=== PATIENT | female | born 1960 | race Caucasian/White ===

== ENCOUNTER 2021-09-15 10:13 | Observation (INO) | payer BC ==
[2021-09-12 15:40] LABS: PRE OP PROTIME 10.1 SECONDS (9.0-12.0)
[2021-09-12 15:51] LABS: ALBUMIN 4.1 G/DL (3.4-5.0); ALBUMIN/GLOBULIN RATIO 1.4 (1.1-1.5); ALKALINE PHOSPHATASE 37 IU/L (46-116); BLOOD UREA NITROGEN 22 MG/DL (7-18); BUN/CREATININE RATIO 24.4 (6.6-38.0); CALCIUM 8.5 MG/DL (8.5-10.1); CHLORIDE 104 MMOL/L (99-107); PRE OP ALT 24 U/L (30-65); PRE OP ANION GAP 9 (8-16); PRE OP AST 18 U/L (10-37); PRE OP BILIRUB, TOTAL 0.5 MG/DL (0.0-1.0); PRE OP GLUCOSE 103 MG/DL (70-104); PRE OP POTASSIUM 3.8 MMOL/L (3.4-5.1); PRE OP SODIUM 140 MMOL/L (135-145); TOTAL CARBON DIOXIDE 27.2 MMOL/L (24-32); TOTAL PROTEIN 7.1 G/DL (6.4-8.2); eGFR 63 ML/MIN
[2021-09-12 16:05] LABS: BASOPHILS % (AUTO) 0.6 % (0-1); EOSINOPHILS # (AUTO) 0.2 X10'3 (0-0.9); EOSINOPHILS % (AUTO) 2.2 % (0-6); LYMPHOCYTES # (AUTO) 1.5 X10'3 (1.1-4.8); LYMPHOCYTES % (AUTO) 19.8 % (21-51); MEAN CORPUSCULAR HEMOGLOBIN 31.7 PG (27.0-31.0); MEAN CORPUSCULAR HGB CONC 33.9 g/dL (33.0-36.5); MEAN CORPUSCULAR VOLUME 93.5 FL (78-98); MEAN PLATELET VOLUME 9.4 FL (7.4-10.4); MONOCYTES # (AUTO) 0.4 X10'3 (0-0.9); MONOCYTES % (AUTO) 4.7 % (2-12); NEUTROPHILS # (AUTO) 5.5 X10'3 (1.8-7.7); NEUTROPHILS % (AUTO) 72.7 % (42-75); PRE OP HEMATOCRIT 41.1 % (35.0-45.0); PRE OP HEMOGLOBIN 13.9 g/dL (12.0-16.0); PRE OP PLATELET COUNT 166 X10'3 (140-440); RED BLOOD COUNT 4.39 X10'6 (4.20-5.60); RED CELL DISTRIBUTION WIDTH 13.4 % (11.5-14.5)
[~2021-09-15] VITALS: Ht 170.2 cm; Wt 68.5 kg
[2021-09-15] VITALS (19 sets, daily range): BP systolic 113–147; BP diastolic 62–136
[~2021-09-15 10:13] MED LIST: ACET-1008 PO; HRT; ROPIVAcaine 0.5% (5mg/ml) 30ml vial ONE; THYR90TA12 PO; ceFAZolin inj. 2,000 MG in dextrose 5%-water 100 ML IV ONE; famotidine 20mg tablet PO ONE; ketorolac trometh. 30mg/ml inj. ONE; ringers solution, lacted 1,000 ML IV SCH; tranexamic acid 650mg tablet PO ONE; vancomycin/NS 1 GM in NS 250 ML IV ONE
--- NOTE | 2021-09-15 10:20 | NUR ---
CSM: PULSES PRESENT AND MARKED. PATIENT STATES SHE DID NOT WATCH THE VIDEO, BUT SHE DID USE THE MUPIROCIN OINTMENT. PATIENT WAS EDUCATED ON THE USE OF THE INCENTIVE SPIROMETER AND ITS IMPORTANCE.
[2021-09-15] MEDS ORDERED: scopolamine 1mg/72 hr patch TD SCH (10:55)
[2021-09-15] MEDS ORDERED: ROPIVAcaine 0.5% (5mg/ml) 30ml vial ONE ×2 (11:06→11:29)
[2021-09-15] MEDS ORDERED: tetracaine 1% (10mg/ml) pres. free inj. ONE (11:29)
[2021-09-15] MEDS ORDERED: propofol inj 20 ML IV ONE ×3 (11:31→13:33)
[2021-09-15] MEDS ORDERED: MIDAZolam 1mg/ml 10ml vial ONE ×2 (13:03→13:37)
[2021-09-15] MEDS ORDERED: LIDOcaine 1%/PF 5ML 10 MG/ML VIAL ONE (13:31)
[2021-09-15] MEDS ORDERED: ondansetron/PF 4mg/2ml inj ONE (13:34)
[2021-09-15] MEDS ORDERED: morphine 4 MG/ML inj SYRINge IV PRN (13:45)
[2021-09-15] MEDS ORDERED: labetalol 20mg/4ml (5mg/ml) syringe IV PRN (13:45)
[2021-09-15] MEDS ORDERED: ringers solution, lacted 1,000 ML IV SCH (13:45)
[2021-09-15] MEDS ORDERED: morphine 2 MG/ML inj. syringe IV PRN (13:45)
[2021-09-15] MEDS ORDERED: hydrALAZINE 20mg/ml inj. IV PRN (13:45)
[2021-09-15] MEDS ORDERED: meperidine/PF 25mg/ml syringe IV PRN ×2 (13:45)
[2021-09-15] MEDS ORDERED: ondansetron/PF 4mg/2ml inj IV PRN (13:45)
[2021-09-15] MEDS ORDERED: dexamethasone sod phosphate 4mg/ml inj. ONE (13:58)
[2021-09-15] MEDS ORDERED: HYDROcodone/acetaminophen 10/325mg tab PO PRN (14:20)
--- NOTE | 2021-09-15 14:41 | NUR ---
Received from OR via bed , accompanied by Anesthesiologist and report given by Anesthesiolgist (Dr. Ferris). Patient waking up, denies pain, VSS, neurovascular checks intact, scd on, 20g piv to left hand, dressing to left knee is clean, dry and intact, ordaz cath drain via gravity and yellow urine noted. SAB given in OR with dermatome level of L3. patient felt numbness and no movement on LLE. Addendum: 09/15/21 at 1508 by Vitor Adams RN Amended: Links added.
[2021-09-15] MEDS ORDERED: ROPIVAcaine 0.5% (5mg/ml) 30ml vial IJ ONE (14:58)
--- NOTE | 2021-09-15 15:55 | NUR ---
PATIENT HAS MET ALL CRITERIA FOR TRANSFER TO ORTHO FLOOR. VSS. DRESSINGS INTACT. BED LOW, CALL LIGHT PRESENT AND 2 RAILS UP. RN PRESENT TO ACCEPT CARE OF PATIENT AND REPORT HAS BEEN CALLED. ALL QUESTIONS ANSWERED TO ACCEPTING RN. Addendum: 09/15/21 at 1607 by Vitor Adams RN Amended: Links added.
--- NOTE | 2021-09-15 16:33 | NUR ---
Spoke to MD Paiz about this patient, he was not aware that she was staying nor that her block was not worn off. He would like patient to be discharged home if and when the block does wear off and she is able to transfer safely. Orders received via telephone for discharge and that he would like patient to have 2 grams of ancef before she goes IF she goes and IF not he wants standard 1 gram ancef x2 bags and 1 gram of vanco per protocol for surgical prophylaxis. Patient would really like to go home, not feeling anything beyond hip at this point, not able to wiggle though endorses pins and needles. Patient also has a ordaz catheter, advised that we would remove this prior to DC to ensure she can void. 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
[2021-09-15] MEDS ORDERED: ceFAZolin/D5W- 1GM premix 50 ML IV SCH (18:00)
--- NOTE | 2021-09-15 18:14 | NUR ---
Patient report was given RADAMES Miles.
[2021-09-15] MEDS ORDERED: vancomycin/NS 1 GM ADD-VANTAGE 250 ML IV ONE (20:00)
[2021-09-15] MEDS ORDERED: diphenhydrAMINE 25mg capsule PO PRN ×2 (21:10)
[2021-09-15] MEDS: ceFAZolin/D5W- 1GM premix 50 ML IV SCH (23:37)
[2021-09-16 02:00] VITALS: BP 125/66
[2021-09-16 06:00] VITALS: BP 112/54
--- NOTE | 2021-09-16 06:37 | NUR ---
Patient report was received by RADAMES HERNANDEZ. Questions answered & plan of care reviewed.
[2021-09-16] MEDS: ceFAZolin/D5W- 1GM premix 50 ML IV SCH (07:37)
--- NOTE | 2021-09-16 08:43 | NUR ---
PT D/C WITH INSTRUCTIONS, UNDERSTANDING OF INSTRUCTIONS AND W/ALL BELONGINGS IN WHEELCHAIR ACCOMPANIED BY TO PRIVATE VEHICLE TO F/U W/SURGEON
[2021-09-16] MEDS ORDERED: cefazolin/dext.iso 2gm/100ml 100 ML IV ONE (17:30)
== END 2021-09-16 08:30 | disposition home or self-care (01) ==
LOC: PAS 10:13 → ORTHO 4S 14:27
PROVIDERS: ADMIT Orthopaedic Surgery; ATTEND Orthopaedic Surgery
DX: M23.52 Chronic instability of knee, left knee (principal); Z20.822 Contact with and (suspected) exposure to COVID-19; M65.9 Synovitis and tenosynovitis, unspecified; Z96.652 Presence of left artificial knee joint; Z85.828 Personal history of other malignant neoplasm of skin; Z79.899 Other long term (current) drug therapy
CPT/HCPCS: 27486; 36415; 80053; 82948; 84443; 85025; 85610; 85730; 87070; 87081; 93005; 96365; 96366; 96367; 97116; 97161; 97530; C1758; C1776; G0378; J0690; J1100; J1885; J2250; J2405; J2704; J2795; J3370; J3490; J7030; J7060; J7120; A4618; A6258; A7000

== ENCOUNTER 2021-10-09 16:29 | Outpatient (CLI) | payer BC ==
[~2021-10-09 16:29] MED LIST changes: -ROPIVAcaine 0.5% (5mg/ml) 30ml vial ONE; -ceFAZolin inj. 2,000 MG in dextrose 5%-water 100 ML IV ONE; -famotidine 20mg tablet PO ONE; -ketorolac trometh. 30mg/ml inj. ONE; -ringers solution, lacted 1,000 ML IV SCH; -tranexamic acid 650mg tablet PO ONE; -vancomycin/NS 1 GM in NS 250 ML IV ONE
[2021-10-09 18:45] LABS: APPEARANCE,SYNOVIAL FLUID CLOUDY; COLOR,SYNOVIAL FLUID OTHER; LYMPHOCYTES,SYNOVIAL FLUID 29 % (0-75); MONOCYTES,SYNOVIAL FLUID 4 % (0-0); SYN RBC 6150 /CU MM (0); SYN WBC 1025 /CU MM (0-200)
[2021-10-09 18:46] LABS: NEUTROPHILS,SYNOVIAL FLUID 67 % (0-25)
[2021-10-10] MEDS ORDERED: TEST200V33 SQ (18:00)
[2021-10-10] MEDS ORDERED: CHOL500050 PO (18:21)
[2021-10-10] MEDS ORDERED: HYDR-3972 PO (18:21)
[2021-10-10] MEDS ORDERED: TURM500T PO (18:23)
== END 2021-10-09 23:59 | disposition home or self-care (01) ==
LOC: LAB SPEC 16:29
PROVIDERS: ATTEND Orthopaedic Surgery
DX: M17.12 Unilateral primary osteoarthritis, left knee (principal)
CPT/HCPCS: 87070; 87075; 89051

== ENCOUNTER 2021-10-10 16:38 | Inpatient (IN) | payer BC ==
[~2021-10-10] VITALS: Ht 170.2 cm; Wt 67.3 kg
[~2021-10-10 16:38] MED LIST changes: +ceFAZolin inj. 2,000 MG in dextrose 5%-water 100 ML IV ONE
[2021-10-10] MEDS ORDERED: chlorhexidine gluc 4% **topical ** 120ml btl. TP ONE ×2 (17:15→23:25)
[2021-10-10] MEDS ORDERED: ceFAZolin 1000mg inj IR ONE (17:15)
[2021-10-10] MEDS ORDERED: tranexamic acid 650mg tablet PO ONE (17:35)
[2021-10-10] MEDS ORDERED: TEST200V33 SQ (18:00)
[2021-10-10 18:07] LABS: ALBUMIN 3.7 G/DL (3.4-5.0); ANION GAP 10 (8-16); BLOOD UREA NITROGEN 13 MG/DL (7-18); BUN/CREATININE RATIO 13.7 (6.6-38.0); C-REACTIVE PROTEIN 18.19 MG/DL (0.0-0.5); CALCIUM 8.9 MG/DL (8.5-10.1); CHLORIDE 102 MMOL/L (99-107); CREATININE 0.95 MG/DL (0.40-0.90); GLUCOSE 112 MG/DL (70-104); POTASSIUM 3.8 MMOL/L (3.5-5.1); SODIUM 138 MMOL/L (135-145); eGFR 60 ML/MIN
[2021-10-10 18:11] LABS: BASOPHILS % (AUTO) 0.2 % (0-1); EOSINOPHILS % (AUTO) 0 % (0-6); HEMATOCRIT 39.4 % (35.0-45.0); HEMOGLOBIN 13.3 g/dl (12.0-16.0); LYMPHOCYTES # (AUTO) 0.5 X10'3 (1.1-4.8); LYMPHOCYTES % (AUTO) 3.9 % (21-51); MEAN CORPUSCULAR HEMOGLOBIN 32.1 PG (27.0-31.0); MEAN CORPUSCULAR HGB CONC 33.7 g/dL (33.0-36.5); MEAN CORPUSCULAR VOLUME 95.5 FL (78-98); MEAN PLATELET VOLUME 8.5 FL (7.4-10.4); MONOCYTES # (AUTO) 0.7 X10'3 (0-0.9); MONOCYTES % (AUTO) 5.2 % (2-12); NEUTROPHILS # (AUTO) 12.8 X10'3 (1.8-7.7); NEUTROPHILS % (AUTO) 90.7 % (42-75); PLATELET COUNT 220 X10'3 (140-440); RED BLOOD COUNT 4.12 X10'6 (4.20-5.60); RED CELL DISTRIBUTION WIDTH 14.4 % (11.5-14.5); WHITE BLOOD COUNT 14.2 X10'3 (4.5-11.0)
[2021-10-10] MEDS ORDERED: CHOL500050 PO (18:21)
[2021-10-10] MEDS ORDERED: HYDR-3972 PO (18:21)
[2021-10-10] MEDS ORDERED: TURM500T PO (18:23)
[2021-10-10 18:30] VITALS: BP 131/65
[2021-10-10] MEDS ORDERED: acetaminophen 325mg tablet PO PRN (18:45)
[2021-10-10] MEDS ORDERED: ceFAZolin inj. 2,000 MG in dextrose 5%-water 100 ML IV ONE (19:00)
[2021-10-10] MEDS: ringers solution, lacted 1,000 ML IV SCH (20:35)
[2021-10-10] MEDS: vancomycin/NS 1 GM ADD-VANTAGE 250 ML IV SCH (20:37)
[2021-10-10 22:00] VITALS: BP 129/66
[2021-10-10] MEDS: ceFAZolin/D5W- 1GM premix 50 ML IV SCH (23:53)
[2021-10-11] VITALS (21 sets, daily range): BP systolic 101–135; BP diastolic 54–84
[2021-10-11] MEDS: ringers solution, lacted 1,000 ML IV SCH ×3 (03:15→23:15)
[2021-10-11] MEDS: HYDROcodone/acetaminophen 10/325mg tab PO PRN ×3 (05:01→23:08)
--- NOTE | 2021-10-11 06:22 | NUR ---
Problems reprioritized. Patient report given, questions answered & plan of care reviewed with Vita CRUM.
--- NOTE | 2021-10-11 06:48 | NUR ---
Patient in room ORTHO 4007. I have received report from kim calix and had the opportunity to ask questions and assume patient care.
[2021-10-11] MEDS: cholecalciferol (vitamin D3) 1,000 unit (25mcg) tablet PO SCH (07:38)
[2021-10-11] MEDS: ceFAZolin/D5W- 1GM premix 50 ML IV SCH (07:38)
[2021-10-11] MEDS: thyroid, pork 30mg tablet PO SCH (07:39)
[2021-10-11] MEDS ORDERED: ketorolac trometh. 30mg/ml inj. ONE ×2 (09:03→10:21)
[2021-10-11] MEDS ORDERED: ROPIVAcaine 0.5% (5mg/ml) 30ml vial ONE ×2 (09:04→10:32)
[2021-10-11] MEDS ORDERED: tobramycin 40mg/ml inj ONE (09:12)
[2021-10-11] MEDS: vancomycin/NS 1 GM ADD-VANTAGE 250 ML IV SCH ×2 (09:41→19:17)
[2021-10-11] MEDS ORDERED: vancomycin 1,000mg inj ONE (10:00)
[2021-10-11] MEDS ORDERED: tobramycin sulfate 1.2gm vial ONE (10:00)
[2021-10-11] MEDS ORDERED: fentaNYL/PF 50MCG/1 ML 2ML syringe ONE (10:20)
[2021-10-11] MEDS ORDERED: LIDOcaine 2% (20mg/ml) 5ml vial ONE (10:21)
[2021-10-11] MEDS ORDERED: acetaminophen 1,000mg/100ml IV 100 ML IV ONE (10:21)
[2021-10-11] MEDS ORDERED: ondansetron/PF 4mg/2ml inj ONE ×2 (10:21→10:25)
[2021-10-11] MEDS ORDERED: propofol inj 20 ML IV ONE (10:21)
[2021-10-11] MEDS ORDERED: ondansetron/PF 4mg/2ml inj IV PRN ×2 (10:25→12:35)
[2021-10-11] MEDS ORDERED: labetalol 20mg/4ml (5mg/ml) syringe IV PRN (10:25)
[2021-10-11] MEDS ORDERED: hydrALAZINE 20mg/ml inj. IV PRN (10:25)
[2021-10-11] MEDS ORDERED: morphine 2 MG/ML inj. syringe IV PRN (10:25)
[2021-10-11] MEDS ORDERED: sevoflurane 250ml liquid IH ONE (10:25)
[2021-10-11] MEDS ORDERED: ringers solution, lacted 1,000 ML IV SCH (10:25)
[2021-10-11] MEDS ORDERED: proCHLORperazine 10 MG/2 ml inj IV PRN (10:25)
[2021-10-11] MEDS ORDERED: scopolamine 1.5mg patch.TD72 (72-hour patch) TD ONE (10:25)
[2021-10-11] MEDS ORDERED: dexamethasone sod phosphate 4mg/ml inj. ONE (10:39)
--- NOTE | 2021-10-11 12:09 | NUR ---
Received from OR via BED, accompanied by Anesthesiologist and report given by SHAE Anesthesiologist. PATIENT WAKING UP, NO S/S OF PAIN, V/S WNL, SCD ON, 20G TO RUE, DRESSING to LEFT KNEE CDI WIH POWDER ICE PACK. Addendum: 10/11/21 at 1314 by Vitor Adams RN Amended: Links added.
--- NOTE | 2021-10-11 12:09 | NUR ---
Received from OR via BED, accompanied by Anesthesiologist and report given by SHAE Anesthesiologist. PATIENT WAKING UP, NO S/S OF PAIN, V/S WNL, SCD ON, 18G TO RUE, drsg to LEFT KNEE CDI with ON Q BALL AT 2ML/HR.
--- NOTE | 2021-10-11 12:09 | NUR ---
Received from OR via BED, accompanied by Anesthesiologist and report given by SHAE Anesthesiologist. PATIENT WAKING UP, NO S/S OF PAIN, V/S WNL, SCD ON, 18G TO Emily GODOYg to K KNEE CDI with ON Q BALL AT 2ML/HR.
[2021-10-11] MEDS: morphine 4 MG/ML inj SYRINge IV PRN ×2 (12:14→15:35)
[2021-10-11] MEDS: fentaNYL/PF 50MCG/1 ML 2ML syringe IV PRN ×4 (12:26→15:35)
[2021-10-11] MEDS ORDERED: naloxone 0.4 mg/ml inj IV PRN (12:35)
[2021-10-11] MEDS ORDERED: magnesium hydroxide 30ml (MOM) UD suspension PO PRN (12:35)
[2021-10-11] MEDS ORDERED: acetaminophen 325mg tablet PO PRN (12:35)
[2021-10-11] MEDS ORDERED: bisacodyl 10mg suppository rectal RC PRN (12:35)
[2021-10-11] MEDS ORDERED: diphenhydrAMINE 25mg capsule PO PRN ×2 (12:35)
--- NOTE | 2021-10-11 13:19 | NUR ---
PATIENT HAS MET ALL CRITERIA FOR TRANSFER TO ORTHO FLOOR. VSS. DRESSINGS INTACT. BED LOW, CALL LIGHT PRESENT AND 2 RAILS UP. RN PRESENT TO ACCEPT CARE OF PATIENT AND REPORT HAS BEEN CALLED. ALL QUESTIONS ANSWERED TO ACCEPTING RN. Addendum: 10/11/21 at 1335 by Vitor Adams RN Amended: Links added.
[2021-10-11] MEDS: acetaminophen 325mg tablet PO SCH ×2 (14:04→19:21)
--- NOTE | 2021-10-11 15:40 | NUR ---
Problems reprioritized. Patient report given, questions answered & plan of care reviewed with terry calix .
--- NOTE | 2021-10-11 16:00 | NUR ---
Assumed care of pt. Pt awake and alert. VSS. Pt reported minimal pain at this time. L Knee dressing CDI with RAMON drain in place minimal serosang. drainage in bulb.
--- NOTE | 2021-10-11 19:00 | NUR ---
Patient in room ORTHO 4007. I have received report from Alan CRUM and had the opportunity to ask questions and assume patient care.
[2021-10-11] MEDS: potassium cl 20mEq in 1/2 NS 1,000 ML IV SCH ×2 (19:17→20:35)
[2021-10-11] MEDS: rifampin 300mg capsule PO SCH (19:21)
[2021-10-11] MEDS: sennosides 8.6mg tablet PO SCH (19:22)
[2021-10-12] MEDS: acetaminophen 325mg tablet PO SCH ×4 (01:33→20:00)
[2021-10-12 02:00] VITALS: BP 102/68
[2021-10-12] MEDS: potassium cl 20mEq in 1/2 NS 1,000 ML IV SCH ×3 (04:35→15:21)
[2021-10-12] MEDS: HYDROcodone/acetaminophen 10/325mg tab PO PRN ×2 (05:21→09:39)
[2021-10-12 06:00] VITALS: BP 100/60
--- NOTE | 2021-10-12 06:30 | NUR ---
Patient in room ORTHO 4007. I have received report from Nikki CRUM and had the opportunity to ask questions and assume patient care.
--- NOTE | 2021-10-12 06:45 | NUR ---
Problems reprioritized. Patient report given, questions answered & plan of care reviewed with Camila CRUM.
[2021-10-12] MEDS ORDERED: VANCOMYCIN LEVEL IV ONE (07:30)
[2021-10-12 08:44] LABS: BASOPHILS % (AUTO) 0.1 % (0-1); EOSINOPHILS % (AUTO) 0.3 % (0-6); HEMATOCRIT 32.1 % (35.0-45.0); LYMPHOCYTES # (AUTO) 0.9 X10'3 (1.1-4.8); LYMPHOCYTES % (AUTO) 7.2 % (21-51); MEAN CORPUSCULAR HEMOGLOBIN 32.3 PG (27.0-31.0); MEAN CORPUSCULAR HGB CONC 34.3 g/dL (33.0-36.5); MEAN PLATELET VOLUME 8.9 FL (7.4-10.4); MONOCYTES # (AUTO) 0.6 X10'3 (0-0.9); MONOCYTES % (AUTO) 5.1 % (2-12); NEUTROPHILS # (AUTO) 10.7 X10'3 (1.8-7.7); NEUTROPHILS % (AUTO) 87.3 % (42-75); PLATELET COUNT 188 X10'3 (140-440); RED BLOOD COUNT 3.42 X10'6 (4.20-5.60); RED CELL DISTRIBUTION WIDTH 13.8 % (11.5-14.5); WHITE BLOOD COUNT 12.2 X10'3 (4.5-11.0)
[2021-10-12 09:08] LABS: ANION GAP 8 (8-16); CHLORIDE 106 MMOL/L (99-107); POTASSIUM 4.2 MMOL/L (3.5-5.1); SODIUM 137 MMOL/L (135-145); TOTAL CARBON DIOXIDE 23.3 MMOL/L (24-32); VANCOMYCIN,TROUGH 10.2 UG/ML (6.0-14.0)
[2021-10-12] MEDS: ringers solution, lacted 1,000 ML IV SCH ×2 (09:15→19:15)
[2021-10-12] MEDS: thyroid, pork 30mg tablet PO SCH (09:38)
[2021-10-12] MEDS: cholecalciferol (vitamin D3) 1,000 unit (25mcg) tablet PO SCH (09:39)
[2021-10-12] MEDS: aspirin 325mg tablet PO SCH (09:39)
[2021-10-12] MEDS: vancomycin/NS 1 GM ADD-VANTAGE 250 ML IV SCH (09:40)
[2021-10-12] MEDS: rifampin 300mg capsule PO SCH ×2 (09:40→21:17)
[2021-10-12 10:00] VITALS: BP 103/62
[2021-10-12] MEDS: HYDROmorphone inj. 0.5 MG/0.5 ML DISP.SYRIN IV PRN ×2 (12:31→19:17)
[2021-10-12 18:30] VITALS: BP 117/63
--- NOTE | 2021-10-12 18:30 | NUR ---
Assumed care of pt after report from Camila CRUM.
--- NOTE | 2021-10-12 19:03 | NUR ---
Problems reprioritized. Patient report given, questions answered & plan of care reviewed with Ashlyn.
[2021-10-12] MEDS: sennosides 8.6mg tablet PO SCH (21:08)
[2021-10-12] MEDS: VANCOmycin 1250MG/NS 250ml Bag 250 ML IV SCH (21:08)
[2021-10-12] MEDS: oxyCODONE IR 5mg (immed. release) tablet PO PRN (21:17)
[2021-10-12 22:00] VITALS: BP 106/64
[2021-10-13] MEDS: acetaminophen 325mg tablet PO SCH ×2 (01:22→07:23)
[2021-10-13] MEDS: HYDROmorphone 1 mg/ml syringe IV PRN ×2 (01:22→05:21)
[2021-10-13] MEDS: oxyCODONE IR 5mg (immed. release) tablet PO PRN (04:05)
[2021-10-13 05:48] LABS: BASOPHILS % (AUTO) 0.3 % (0-1); EOSINOPHILS # (AUTO) 0.1 X10'3 (0-0.9); EOSINOPHILS % (AUTO) 1.6 % (0-6); HEMATOCRIT 30.6 % (35.0-45.0); HEMOGLOBIN 10.5 g/dl (12.0-16.0); LYMPHOCYTES # (AUTO) 1.4 X10'3 (1.1-4.8); LYMPHOCYTES % (AUTO) 18.3 % (21-51); MEAN CORPUSCULAR HGB CONC 34.2 g/dL (33.0-36.5); MEAN CORPUSCULAR VOLUME 93.5 FL (78-98); MEAN PLATELET VOLUME 8.3 FL (7.4-10.4); MONOCYTES # (AUTO) 0.6 X10'3 (0-0.9); MONOCYTES % (AUTO) 7.2 % (2-12); NEUTROPHILS # (AUTO) 5.6 X10'3 (1.8-7.7); NEUTROPHILS % (AUTO) 72.6 % (42-75); PLATELET COUNT 187 X10'3 (140-440); RED BLOOD COUNT 3.27 X10'6 (4.20-5.60); RED CELL DISTRIBUTION WIDTH 14.5 % (11.5-14.5); WHITE BLOOD COUNT 7.8 X10'3 (4.5-11.0)
[2021-10-13 06:00] VITALS: BP 120/70
--- NOTE | 2021-10-13 06:26 | NUR ---
Patient in room ORTHO 4007. I have received report from Ashlyn CRUM and had the opportunity to ask questions and assume patient care.
--- NOTE | 2021-10-13 06:27 | NUR ---
Report to Melissa LLANOS.
[2021-10-13] MEDS: thyroid, pork 30mg tablet PO SCH (07:24)
[2021-10-13] MEDS: aspirin 325mg tablet PO SCH (07:25)
[2021-10-13] MEDS: cholecalciferol (vitamin D3) 1,000 unit (25mcg) tablet PO SCH (07:25)
[2021-10-13] MEDS: rifampin 300mg capsule PO SCH (07:26)
[2021-10-13 08:35] LABS: ALBUMIN 2.5 G/DL (3.4-5.0); ANION GAP 8 (8-16); CALCIUM 8.8 MG/DL (8.5-10.1); CHLORIDE 109 MMOL/L (99-107); CREATININE 0.77 MG/DL (0.40-0.90); GLUCOSE 89 MG/DL (70-104); SODIUM 142 MMOL/L (135-145); TOTAL CARBON DIOXIDE 24.9 MMOL/L (24-32); eGFR 76 ML/MIN
[2021-10-13 08:37] LABS: BLOOD UREA NITROGEN 9 MG/DL (7-18)
[2021-10-13 08:57] LABS: BUN/CREATININE RATIO 11.7 (6.6-38.0)
[2021-10-13] MEDS: VANCOmycin 1250MG/NS 250ml Bag 250 ML IV SCH (09:23)
[2021-10-13 10:00] VITALS: BP 127/69
[2021-10-13] MEDS ORDERED: RIFA150C7 PO (10:08)
[2021-10-13] MEDS ORDERED: acetaminophen 325mg tablet PO PRN (12:35)
--- NOTE | 2021-10-13 14:00 | NUR ---
WEATHERSEAL TECHNICIAN documentation: I have reviewed and agree with all interventions, assessments performed and documented by ELISHA.
[2021-10-13] MEDS: HYDROcodone/acetaminophen 10/325mg tab PO PRN (14:48)
--- NOTE | 2021-10-13 15:36 | NUR ---
Patient discharge home with family. Discharge information was reviewed with patient and spouse. Patient verbalized understanding of discharge information and was assisted to personal vehicle with all belongings.
[2021-10-14] MEDS ORDERED: VANCOMYCIN LEVEL IV ONE (08:30)
== END 2021-10-13 15:00 | disposition home or self-care (01) | DRG 486 ==
LOC: UNDOADMIN 16:38 → ORTHO 4S 16:38
PROVIDERS: ADMIT Orthopaedic Surgery; ATTEND Orthopaedic Surgery
PROC: 0SUW09Z Supplement Left Knee Joint, Tibial Surface with Liner, Open Approach (ICD-10-PCS; 2021-10-11)
PROC: 3E0T3BZ Introduction of Anesthetic Agent into Peripheral Nerves and Plexi, Percutaneous Approach (ICD-10-PCS; 2021-10-11)
PROC: 3E0T33Z Introduction of Anti-inflammatory into Peripheral Nerves and Plexi, Percutaneous Approach (ICD-10-PCS; 2021-10-11)
PROC: 0SPD09Z Removal of Liner from Left Knee Joint, Open Approach (ICD-10-PCS; principal; 2021-10-11 10:25)
PROC: 02HV33Z Insertion of Infusion Device into Superior Vena Cava, Percutaneous Approach (ICD-10-PCS; 2021-10-13)
PROC: B548ZZA Ultrasonography of Superior Vena Cava, Guidance (ICD-10-PCS; 2021-10-13)
DX: T84.54XA Infection and inflammatory reaction due to internal left knee prosthesis, initial encounter (principal); D62 Acute posthemorrhagic anemia; L03.116 Cellulitis of left lower limb; Z20.822 Contact with and (suspected) exposure to COVID-19; E03.9 Hypothyroidism, unspecified; G89.29 Other chronic pain; Y83.1 Surgical operation with implant of artificial internal device as the cause of abnormal reaction of the patient, or of later complication, without mention of misadventure at the time of the procedure; Z96.643 Presence of artificial hip joint, bilateral; Z96.651 Presence of right artificial knee joint; Y92.89 Other specified places as the place of occurrence of the external cause; Z88.1 Allergy status to other antibiotic agents
CPT/HCPCS: 36415; 36569; 76942; 80048; 80051; 80202; 82948; 83605; 85025; 85651; 86140; 87040; 87070; 87075; 87081; 93005; 97110; 97116; 97162; 97530; C1751; G0378; J0131; J0690; J1100; J1170; J1885; J2270; J2405; J2704; J2795; J3010; J3260; J3370; J3480; J3490; J7120

== ENCOUNTER 2022-10-04 11:54 | Inpatient (IN) | payer BC ==
[~2022-10-04] VITALS: Ht 170.2 cm; Wt 65.8 kg
[2022-10-04] VITALS (14 sets, daily range): BP systolic 120–180; BP diastolic 60–91
[~2022-10-04 11:54] MED LIST changes: +CHOL500050 PO; -HRT; +HYDR-3972 PO; +RIFA150C7 PO; +TEST200V33 SQ; +TURM500T PO; -ceFAZolin inj. 2,000 MG in dextrose 5%-water 100 ML IV ONE
[2022-10-04] MEDS ORDERED: morphine 4 MG/ML inj SYRINge IV ONE (13:15)
[2022-10-04] MEDS ORDERED: ondansetron/PF 4mg/2ml inj IM ONE (13:15)
[2022-10-04] MEDS ORDERED: HYDROmorphone inj. 0.5 MG/0.5 ML DISP.SYRIN IV PRN (13:50)
[2022-10-04] MEDS ORDERED: acetaminophen 325mg tablet PO PRN (13:50)
[2022-10-04] MEDS ORDERED: ondansetron/PF 4mg/2ml inj IV PRN ×2 (13:50→16:15)
[2022-10-04] MEDS ORDERED: magnesium hydroxide 30ml (MOM) UD suspension PO PRN (13:50)
[2022-10-04] MEDS ORDERED: bisacodyl 10mg suppository rectal RC PRN (13:50)
[2022-10-04] MEDS ORDERED: diphenhydrAMINE 25mg capsule PO PRN ×2 (13:50)
[2022-10-04] MEDS ORDERED: naloxone 0.4 mg/ml inj IV PRN (13:50)
[2022-10-04] MEDS ORDERED: oxyCODONE IR 5mg (immed. release) tablet PO PRN (13:50)
[2022-10-04 13:53] LABS: BASOPHILS % (AUTO) 0.2 % (0-1); EOSINOPHILS % (AUTO) 0.1 % (0-6); HEMATOCRIT 39.2 % (35.0-45.0); HEMOGLOBIN 13.2 g/dl (12.0-16.0); LYMPHOCYTES # (AUTO) 0.5 X10'3 (1.1-4.8); LYMPHOCYTES % (AUTO) 3.4 % (21-51); MEAN CORPUSCULAR HEMOGLOBIN 31.9 PG (27.0-31.0); MEAN CORPUSCULAR HGB CONC 33.6 g/dL (33.0-36.5); MEAN CORPUSCULAR VOLUME 94.7 FL (78-98); MEAN PLATELET VOLUME 8.3 FL (7.4-10.4); MONOCYTES # (AUTO) 0.7 X10'3 (0-0.9); NEUTROPHILS # (AUTO) 12.6 X10'3 (1.8-7.7); NEUTROPHILS % (AUTO) 91.3 % (42-75); PLATELET COUNT 211 X10'3 (140-440); RED BLOOD COUNT 4.14 X10'6 (4.20-5.60); RED CELL DISTRIBUTION WIDTH 13.3 % (11.5-14.5); WHITE BLOOD COUNT 13.8 X10'3 (4.5-11.0)
[2022-10-04 14:04] LABS: ALANINE AMINOTRANSFERASE 23 U/L (12-78); ALBUMIN 3.4 G/DL (3.4-5.0); ALKALINE PHOSPHATASE 61 IU/L (46-116); ANION GAP 10 (8-16); ASPARTATE AMINO TRANSFERASE 20 U/L (10-37); BILIRUBIN,TOTAL 0.5 MG/DL (0.1-1.0); BLOOD UREA NITROGEN 9 MG/DL (7-18); BUN/CREATININE RATIO 10.5 (10.0-20.0); C-REACTIVE PROTEIN 11.29 MG/DL (0.0-0.5); CALCIUM 8.9 MG/DL (8.5-10.1); CHLORIDE 102 MMOL/L (99-107); CREATININE 0.86 MG/DL (0.40-0.90); GLUCOSE 136 MG/DL (70-104); POTASSIUM 3.6 MMOL/L (3.5-5.1); SODIUM 137 MMOL/L (135-145); TOTAL CARBON DIOXIDE 24.7 MMOL/L (24-32); TOTAL PROTEIN 6.9 G/DL (6.4-8.2); eGFR 67 ML/MIN
[2022-10-04] MEDS ORDERED: ondansetron/PF 4mg/2ml inj IV ONE (14:25)
[2022-10-04] MEDS: acetaminophen 325mg tablet PO SCH ×2 (14:29→20:00)
[2022-10-04] MEDS ORDERED: HYDROcodone/acetaminophen 10/325mg tab PO PRN (14:47)
[2022-10-04] MEDS ORDERED: hydrALAZINE 20mg/ml inj. IV PRN (16:15)
[2022-10-04] MEDS ORDERED: morphine 2 MG/ML inj. syringe IV PRN (16:15)
[2022-10-04] MEDS ORDERED: labetalol 20mg/4ml (5mg/ml) syringe IV PRN (16:15)
[2022-10-04] MEDS ORDERED: fentaNYL/PF 50MCG/1 ML 2ML syringe IV PRN (16:15)
[2022-10-04] MEDS ORDERED: ringers solution, lacted 1,000 ML IV SCH (16:15)
[2022-10-04] MEDS: HYDROcodone/acetaminophen 10/325mg tab PO PRN (17:17)
--- NOTE | 2022-10-04 17:59 | NUR ---
PATIENT ARRIVED TO FLOOR AT THIS TIME, PATIENT MADE FAMILIAR WITH ROOM AT THIS TIME. PATIENT WAS GIVEN THE CALL LIGHT AT THIS TIME AND FLUID STARTED ORDERED BY MD. PATIENT ON PHONE AT THIS TIME RAILS UP BED DOWN AND IN LOCKED POSITION.
[2022-10-04] MEDS ORDERED: LIDOcaine 2% (20mg/ml) 5ml vial ONE (18:29)
[2022-10-04] MEDS ORDERED: propofol inj 20 ML IV ONE (18:29)
[2022-10-04] MEDS ORDERED: ondansetron/PF 4mg/2ml inj ONE ×2 (18:29→19:11)
[2022-10-04] MEDS ORDERED: fentaNYL/PF 50MCG/1 ML 2ML syringe ONE (18:30)
[2022-10-04] MEDS ORDERED: midazolam 1 mg/ML 2ml injection ONE (18:30)
[2022-10-04] MEDS ORDERED: sevoflurane 250ml liquid IH ONE (19:11)
[2022-10-04] MEDS ORDERED: dexamethasone sod phosphate 10mg/ml inj ONE (19:11)
[2022-10-04] MEDS ORDERED: tranexamic acid 100mg/ml inj. ONE (19:27)
[2022-10-04] MEDS ORDERED: vancomycin 1,000mg inj ONE (20:04)
--- NOTE | 2022-10-04 21:00 | NUR ---
PT ARRIVED TO VIA BED ACCOMPANIED BY DR SONG-ANESTHESIA REPORT GIVEN, PT AWAKE AND IN PAIN-MEDS TO BE GIVEN JHONY, VSS, EMILEE TO LEFT HIP-CDI, PULSES PRESENT TO BILAT LE, NEURO INTACT.
[2022-10-04] MEDS: morphine 4 MG/ML inj SYRINge IV PRN ×2 (21:12→21:29)
[2022-10-04] MEDS ORDERED: acetaminophen 1,000mg/100ml IV 100 ML IV ONE (21:15)
[2022-10-04] MEDS: fentaNYL/PF 50MCG/1 ML 2ML syringe IV PRN ×2 (21:38→22:07)
[2022-10-04] MEDS: oxyCODONE IR 5mg (immed. release) tablet PO PRN (21:51)
--- NOTE | 2022-10-04 22:10 | NUR ---
PT AWAKE, VSS, PAIN MANAGEABLE AFTER IV AND ORAL PAIN MEDS GIVEN, EDUCATED ABOUT WHAT IS AVAILABLE ON THE FLOOR FOR PAIN WELL, DRSG TO LEFT HIP-CDI WITH EMILEE, PULSES PRESENT AND UNCHANGED, PT TRYING TO SLEEP-HAS HAD PAINFUL RESTLESS LAST 48 HRS, ABX ORDERED, REPORT CALLED TO BENITA-ALL QUESTIONS ANSWERED, PT TAKEN BACK TO ROOM 4010B, BED LOW AND LOCKED, PRIMARY RN IN TO RECEIVE PT.
--- NOTE | 2022-10-04 22:20 | NUR ---
PT BACK FROM OR. POST OP VITAL STARTED. MEILEE DRESSING CDI. RECEIVED REPORT FROM RADAMES HARRIS PRIOR TO PT'S ARRIVAL.
[2022-10-04] MEDS: sennosides 8.6mg tablet PO SCH (22:33)
[2022-10-05] VITALS (7 sets, daily range): BP systolic 121–149; BP diastolic 63–79
[2022-10-05] MEDS: HYDROmorphone 1 mg/ml syringe IV PRN ×3 (00:31→16:32)
[2022-10-05] MEDS: ceFAZolin/D5W- 1GM premix 50 ML IV SCH ×2 (00:43→07:49)
[2022-10-05] MEDS: acetaminophen 325mg tablet PO SCH ×4 (01:49→20:05)
[2022-10-05 05:31] LABS: BASOPHILS % (AUTO) 0.2 % (0-1); EOSINOPHILS % (AUTO) 0 % (0-6); HEMATOCRIT 36.7 % (35.0-45.0); HEMOGLOBIN 12.3 g/dl (12.0-16.0); LYMPHOCYTES # (AUTO) 0.4 X10'3 (1.1-4.8); MEAN CORPUSCULAR HEMOGLOBIN 31.6 PG (27.0-31.0); MEAN CORPUSCULAR HGB CONC 33.4 g/dL (33.0-36.5); MEAN CORPUSCULAR VOLUME 94.3 FL (78-98); MEAN PLATELET VOLUME 8.8 FL (7.4-10.4); MONOCYTES # (AUTO) 0.5 X10'3 (0-0.9); MONOCYTES % (AUTO) 3.6 % (2-12); NEUTROPHILS % (AUTO) 93.2 % (42-75); PLATELET COUNT 208 X10'3 (140-440); RED BLOOD COUNT 3.89 X10'6 (4.20-5.60); RED CELL DISTRIBUTION WIDTH 13.3 % (11.5-14.5); WHITE BLOOD COUNT 12.9 X10'3 (4.5-11.0)
[2022-10-05 05:57] LABS: ALANINE AMINOTRANSFERASE 41 U/L (12-78); ALBUMIN 2.8 G/DL (3.4-5.0); ALBUMIN/GLOBULIN RATIO 0.9 (1.1-1.5); ALKALINE PHOSPHATASE 70 IU/L (46-116); ANION GAP 10 (8-16); ASPARTATE AMINO TRANSFERASE 42 U/L (10-37); BILIRUBIN,TOTAL 0.4 MG/DL (0.1-1.0); BLOOD UREA NITROGEN 9 MG/DL (7-18); BUN/CREATININE RATIO 11.8 (10.0-20.0); CALCIUM 8.3 MG/DL (8.5-10.1); CHLORIDE 104 MMOL/L (99-107); CREATININE 0.76 MG/DL (0.40-0.90); GLUCOSE 138 MG/DL (70-104); POTASSIUM 4.4 MMOL/L (3.5-5.1); SODIUM 137 MMOL/L (135-145); TOTAL CARBON DIOXIDE 23.3 MMOL/L (24-32); TOTAL PROTEIN 5.9 G/DL (6.4-8.2); eGFR 77 ML/MIN
--- NOTE | 2022-10-05 06:36 | NUR ---
Problems reprioritized. Patient report given, questions answered & plan of care reviewed with RADAMES FLORES AND RADAMES LOZOYA.
[2022-10-05] MEDS: cholecalciferol (vitamin D3) 1,000 unit (25mcg) tablet PO SCH (07:50)
[2022-10-05] MEDS: thyroid, pork 30mg tablet PO SCH (07:50)
[2022-10-05] MEDS ORDERED: vancomycin/NS 1 GM ADD-VANTAGE 250 ML IV SCH (08:00)
[2022-10-05] MEDS ORDERED: TURMERIC ROOT EXTRACT PO SCH (08:00)
[2022-10-05] MEDS: DAPTOmycin inj. 500 MG in normal saline 100ml IV soln 100 ML IV SCH (12:32)
[2022-10-05] MEDS: rifampin 300mg capsule PO SCH ×2 (12:33→20:05)
[2022-10-05 13:46] LABS: RHEUM FACTOR QUAL REFLEX TITER NEGATIVE (Neg)
[2022-10-05] MEDS: oxyCODONE IR 5mg (immed. release) tablet PO PRN ×2 (14:58→20:07)
--- NOTE | 2022-10-05 17:42 | NUR ---
Orientee documentation: I have reviewed all interventions, assessments performed and documented by Luis CRUM . Orientee Administration: For this medication-pass time frame, all medication were reviewed, dispensed, administered and documented per hospital policy by Luis CRUM.
--- NOTE | 2022-10-05 18:24 | NUR ---
Problems reprioritized. Patient report given TO KE CRUM, questions answered & plan of care reviewed with .
--- NOTE | 2022-10-05 18:35 | NUR ---
Patient in room ORTHO 4017. I have received report from MARKRN AND DARELLRN and had the opportunity to ask questions and assume patient care.
[2022-10-05] MEDS: sennosides 8.6mg tablet PO SCH (20:05)
[2022-10-05] MEDS: celeCOXIB 100mg capsule PO SCH (20:06)
[2022-10-06] MEDS: acetaminophen 325mg tablet PO SCH ×2 (00:50→09:25)
[2022-10-06] MEDS: oxyCODONE IR 5mg (immed. release) tablet PO PRN ×2 (00:50→05:48)
--- NOTE | 2022-10-06 07:00 | NUR ---
Problems reprioritized. Patient report given, questions answered & plan of care reviewed with RADAMES ANTONIO.
[2022-10-06 07:21] VITALS: BP 130/64
[2022-10-06] MEDS ORDERED: VANCOMYCIN LEVEL IV ONE (07:30)
[2022-10-06 07:36] LABS: BASOPHILS % (AUTO) 0.3 % (0-1); EOSINOPHILS # (AUTO) 0.1 X10'3 (0-0.9); EOSINOPHILS % (AUTO) 0.9 % (0-6); HEMATOCRIT 35.2 % (35.0-45.0); HEMOGLOBIN 11.8 g/dl (12.0-16.0); LYMPHOCYTES # (AUTO) 1.5 X10'3 (1.1-4.8); LYMPHOCYTES % (AUTO) 17.8 % (21-51); MEAN CORPUSCULAR HEMOGLOBIN 31.7 PG (27.0-31.0); MEAN CORPUSCULAR HGB CONC 33.7 g/dL (33.0-36.5); MEAN CORPUSCULAR VOLUME 94.1 FL (78-98); MEAN PLATELET VOLUME 8.1 FL (7.4-10.4); MONOCYTES # (AUTO) 0.7 X10'3 (0-0.9); PLATELET COUNT 215 X10'3 (140-440); RED BLOOD COUNT 3.74 X10'6 (4.20-5.60); WHITE BLOOD COUNT 8.2 X10'3 (4.5-11.0)
--- NOTE | 2022-10-06 07:46 | NUR ---
Patient sleeping, chest rising and falling. Will assess when patient awake, VS stable.
[2022-10-06 07:48] LABS: ALANINE AMINOTRANSFERASE 55 U/L (12-78); ALBUMIN 2.7 G/DL (3.4-5.0); ALBUMIN/GLOBULIN RATIO 0.8 (1.1-1.5); ALKALINE PHOSPHATASE 92 IU/L (46-116); ANION GAP 6 (8-16); ASPARTATE AMINO TRANSFERASE 68 U/L (10-37); BILIRUBIN,TOTAL 0.8 MG/DL (0.1-1.0); BLOOD UREA NITROGEN 8 MG/DL (7-18); BUN/CREATININE RATIO 8.9 (10.0-20.0); CALCIUM 8.6 MG/DL (8.5-10.1); CHLORIDE 103 MMOL/L (99-107); GLUCOSE 93 MG/DL (70-104); POTASSIUM 3.8 MMOL/L (3.5-5.1); SODIUM 139 MMOL/L (135-145); TOTAL CARBON DIOXIDE 29.8 MMOL/L (24-32); eGFR 63 ML/MIN
[2022-10-06] MEDS: thyroid, pork 30mg tablet PO SCH (09:24)
[2022-10-06] MEDS: cholecalciferol (vitamin D3) 1,000 unit (25mcg) tablet PO SCH (09:24)
[2022-10-06] MEDS: celeCOXIB 100mg capsule PO SCH (09:24)
[2022-10-06] MEDS: DAPTOmycin inj. 500 MG in normal saline 100ml IV soln 100 ML IV SCH (09:24)
[2022-10-06] MEDS: rifampin 300mg capsule PO SCH (09:25)
[2022-10-06 12:01] VITALS: BP 136/67
[2022-10-06] MEDS: HYDROcodone/acetaminophen 10/325mg tab PO PRN (17:01)
--- NOTE | 2022-10-06 17:18 | NUR ---
Patient is discharged on paper. All belongings in bag. Patient was helped to get dressed. IV taken out. VS stable. [place] 10 two tabs given for pain. Patient has called to pick her up. Waiting on her ride.
[2022-10-07 19:01] LABS: ANTINUCLEAR ANTIBODIES Negative (Negative)
== END 2022-10-06 17:21 | disposition home or self-care (01) | DRG 468 ==
LOC: ER 11:54 → ED HOLD 14:01 → EDBEDREQ 17:25 → ORTHO 4S 17:42
PROVIDERS: ADMIT Orthopaedic Surgery; ATTEND Orthopaedic Surgery
PROC: 0SPB0JZ Removal of Synthetic Substitute from Left Hip Joint, Open Approach (ICD-10-PCS; 2022-10-04)
PROC: 0SRB0JZ Replacement of Left Hip Joint with Synthetic Substitute, Open Approach (ICD-10-PCS; principal; 2022-10-04 19:11)
DX: T84.52XA Infection and inflammatory reaction due to internal left hip prosthesis, initial encounter (principal); D72.829 Elevated white blood cell count, unspecified; Y83.1 Surgical operation with implant of artificial internal device as the cause of abnormal reaction of the patient, or of later complication, without mention of misadventure at the time of the procedure; Z96.653 Presence of artificial knee joint, bilateral; Z96.641 Presence of right artificial hip joint; Z79.82 Long term (current) use of aspirin; Z88.1 Allergy status to other antibiotic agents; Z88.8 Allergy status to other drugs, medicaments and biological substances; Z79.1 Long term (current) use of non-steroidal anti-inflammatories (NSAID); Z79.891 Long term (current) use of opiate analgesic; Y92.89 Other specified places as the place of occurrence of the external cause
CPT/HCPCS: 99285; Z7506; Z7508; 36415; 73502; 73560; 80053; 82948; 83605; 84145; 84443; 84550; 85025; 85651; 86038; 86140; 86430; 87040; 87070; 87075; 87081; A4615; A6454; A7000; C1776; G0378; J0131; J0690; J0878; J1100; J1170; J2250; J2270; J2405; J2704; J3010; J3370; J3490; J7120

== ENCOUNTER 2023-01-07 13:34 | Emergency (ER) | payer BC ==
[~2023-01-07] VITALS: Ht 170.2 cm; Wt 68.2 kg
[~2023-01-07 13:34] MED LIST changes: -RIFA150C7 PO
[2023-01-07 13:35] VITALS: TEMP 98.7
[2023-01-07] MEDS ORDERED: normal saline 1000ML IV soln IVB ONE (13:50)
[2023-01-07] MEDS ORDERED: morphine 4 MG/ML inj SYRINge IV PRN (13:50)
[2023-01-07] MEDS ORDERED: ondansetron/PF 4mg/2ml inj IV ONE (13:50)
[2023-01-07] MEDS ORDERED: propofol 10mg/ml 20ml vial IV ONE (14:00)
[2023-01-07 15:01] VITALS: PULSE 65; RESP 12; O2SAT 100
[2023-01-07 15:03] VITALS: RESP 12; O2SAT 100
[2023-01-07 15:46] VITALS: BP 131/77; PULSE 62; RESP 15; O2SAT 97
== END 2023-01-07 15:53 | disposition home or self-care (01) ==
LOC: ER 13:34
DX: S73.005A Unspecified dislocation of left hip, initial encounter (principal); X58.XXXA Exposure to other specified factors, initial encounter; Y93.89 Activity, other specified; Y92.89 Other specified places as the place of occurrence of the external cause; Y99.8 Other external cause status
CPT/HCPCS: 27256; 73502; 96361; 96374; 96375; 99291; J2270; J2405; J7030; 94760; 99152

== ENCOUNTER 2023-02-04 09:54 | Inpatient (IN) | payer BC ==
[2023-01-29 17:14] LABS: BASOPHILS % (AUTO) 0.3 % (0-1); EOSINOPHILS # (AUTO) 0.1 X10'3 (0-0.9); EOSINOPHILS % (AUTO) 1.7 % (0-6); LYMPHOCYTES # (AUTO) 1.4 X10'3 (1.1-4.8); LYMPHOCYTES % (AUTO) 19.6 % (21-51); MEAN CORPUSCULAR HEMOGLOBIN 31.2 PG (27.0-31.0); MEAN CORPUSCULAR HGB CONC 33.9 g/dL (33.0-36.5); MEAN CORPUSCULAR VOLUME 91.9 FL (78-98); MEAN PLATELET VOLUME 9.2 FL (7.4-10.4); MONOCYTES # (AUTO) 0.5 X10'3 (0-0.9); MONOCYTES % (AUTO) 6.6 % (2-12); NEUTROPHILS % (AUTO) 71.8 % (42-75); PRE OP HEMATOCRIT 37.7 % (35.0-45.0); PRE OP HEMOGLOBIN 12.8 g/dL (12.0-16.0); PRE OP PLATELET COUNT 168 X10'3 (140-440); RED CELL DISTRIBUTION WIDTH 13.7 % (11.5-14.5)
[2023-01-29 17:37] LABS: ALBUMIN 3.7 G/DL (3.4-5.0); ALBUMIN/GLOBULIN RATIO 1.3 (1.1-1.5); ALKALINE PHOSPHATASE 44 IU/L (46-116); BLOOD UREA NITROGEN 23 MG/DL (7-18); BUN/CREATININE RATIO 26.1 (10.0-20.0); CALCIUM 9.1 MG/DL (8.5-10.1); CHLORIDE 103 MMOL/L (99-107); CREATININE 0.88 MG/DL (0.40-0.90); PRE OP ALT 21 U/L (30-65); PRE OP ANION GAP 8 (8-16); PRE OP AST 21 U/L (10-37); PRE OP BILIRUB, TOTAL 0.2 MG/DL (0.0-1.0); PRE OP GLUCOSE 92 MG/DL (70-104); PRE OP POTASSIUM 3.9 MMOL/L (3.4-5.1); PRE OP SODIUM 136 MMOL/L (135-145); THYROID STIMULATING HORMONE 1.65 ulU/ml (0.34-4.50); TOTAL CARBON DIOXIDE 25.5 MMOL/L (24-32); TOTAL PROTEIN 6.5 G/DL (6.4-8.2); eGFR 65 ML/MIN
[~2023-02-04] VITALS: Ht 170.2 cm; Wt 68.0 kg
[2023-02-04] VITALS (16 sets, daily range): BP systolic 102–137; BP diastolic 55–83; PULSE 54–83; RESP 11–16; TEMP 97.5–98.5; O2SAT 97–100
[2023-02-04] MEDS: aspirin 325mg tablet PO SCH (08:30)
[~2023-02-04 09:54] MED LIST changes: +ESTR2TAB25 PO; -HYDR-3972 PO; +HYDROcodone/acetaminophen 10/325mg tab PO PRN; +HYDROmorphone 1 mg/ml syringe IV PRN; +HYDROmorphone inj. 0.5 MG/0.5 ML DISP.SYRIN IV PRN; +IBUP-24 PO; +PROG200C11 PO; -TEST200V33 SQ; +THYR120T14 PO; -THYR90TA12 PO; +[UNRECOGNIZED DRUG - OTHER] PO; +acetaminophen 325mg tablet PO PRN; +ascorbic acid 500mg tablet PO SCH; +bisacodyl 10mg suppository rectal RC PRN; +cefazolin 2gm/D5W 100mL 100 ML IV ONE; +diphenhydrAMINE 25mg capsule PO PRN; +famotidine 20mg tablet PO ONE; +magnesium hydroxide 30ml (MOM) UD suspension PO PRN; +naloxone 0.4 mg/ml inj IV PRN; +ringers solution, lacted 1,000 ML IV SCH; +vancomycin/NS 1 GM in NS 250 ML IV ONE
[2023-02-04] MEDS: scopolamine 1MG/72H patch 1 PATCH PATCH.TD.3 TD SCH ×2 (10:02→23:19)
[2023-02-04] MEDS ORDERED: tranexamic acid inj. 1,000 MG in normal saline 100ml IV soln 90 ML IV ONE (11:00)
[2023-02-04] MEDS ORDERED: epiNEPHrine 1 mg/ml inj ONE (11:04)
[2023-02-04] MEDS ORDERED: ketorolac trometh. 30mg/ml inj. ONE (11:04)
[2023-02-04] MEDS ORDERED: ROPIVAcaine 0.5% (5mg/ml) 30ml vial ONE ×2 (11:05→12:54)
[2023-02-04] MEDS ORDERED: cloNIDine hcl/PF 100mcg/ml inj ONE (11:05)
[2023-02-04] MEDS ORDERED: tetracaine 1% (10mg/ml) pres. free inj. ONE (11:08)
[2023-02-04] MEDS ORDERED: vancomycin 1,000mg inj ONE (11:15)
--- NOTE | 2023-02-04 11:20 | NUR ---
video ointment and csm done and intact
[2023-02-04] MEDS ORDERED: celeCOXIB 100mg capsule PO ONE (11:25)
[2023-02-04] MEDS ORDERED: gabapentin 300mg capsule PO SCH (11:25)
[2023-02-04] MEDS ORDERED: oxyCODONE SR 10mg (sust. release) tab PO ONE (11:25)
[2023-02-04] MEDS ORDERED: metoclopramide 5 mg/ml inj IV ONE (11:25)
[2023-02-04] MEDS ORDERED: acetaminophen 325mg tablet PO PRN (11:25)
[2023-02-04] MEDS ORDERED: gabapentin 300mg capsule PO ONE (11:30)
[2023-02-04] MEDS ORDERED: gabapentin 300mg capsule ONE (11:40)
--- NOTE | 2023-02-04 11:57 | NUR ---
SOME MEDS NOT SCANNING , DOCUMENTED IN EMAR COMPLETED AND ADMINISTERED
[2023-02-04] MEDS ORDERED: fentaNYL/PF 50MCG/1 ML 2ML syringe ONE (12:02)
[2023-02-04] MEDS ORDERED: MIDAZolam 1mg/ml 10ml vial ONE (12:02)
[2023-02-04] MEDS ORDERED: propofol inj 20 ML IV ONE ×3 (12:12→15:02)
[2023-02-04] MEDS ORDERED: ePHEDrine 50MG/ML INJ. ONE (12:27)
[2023-02-04] MEDS ORDERED: morphine 4 MG/ML inj SYRINge IV PRN (13:10)
[2023-02-04] MEDS ORDERED: morphine 2 MG/ML inj. syringe IV PRN (13:10)
[2023-02-04] MEDS ORDERED: hydrALAZINE 20mg/ml inj. IV PRN (13:10)
[2023-02-04] MEDS ORDERED: fentaNYL/PF 50MCG/1 ML 2ML syringe IV PRN ×2 (13:10)
[2023-02-04] MEDS ORDERED: ondansetron/PF 4mg/2ml inj IV PRN (13:10)
[2023-02-04] MEDS ORDERED: proCHLORperazine 10 MG/2 ml inj IV PRN (13:10)
[2023-02-04] MEDS ORDERED: enalaprilat dihydrate 2.5mg/2ml vial IV PRN (13:10)
[2023-02-04] MEDS ORDERED: ringers solution, lacted 1,000 ML IV SCH (13:10)
[2023-02-04] MEDS ORDERED: proMETHazine 25mg rectal suppository RC PRN (13:10)
[2023-02-04] MEDS ORDERED: albumin (Human) 5% 250ml 250 ML IV ONE ×6 (13:49→15:12)
[2023-02-04] MEDS: potassium cl 20mEq in 1/2 NS 1,000 ML IV SCH ×2 (15:00→23:00)
[2023-02-04] MEDS ORDERED: ROPIVAcaine 0.5% (5mg/ml) 30ml vial IJ ONE (15:01)
[2023-02-04] MEDS ORDERED: cloNIDine hcl/PF 100mcg/ml inj EP ONE (15:05)
[2023-02-04] MEDS ORDERED: vancomycin 1,000mg inj IVT ONE (15:05)
[2023-02-04] MEDS ORDERED: epiNEPHrine 1 mg/ml inj SQ ONE (15:05)
--- NOTE | 2023-02-04 16:15 | NUR ---
Received from OR via HOSPITAL BED, accompanied by Anesthesiologist and report given by SHAE Anesthesiologist. PT WAKING UP. VSS. PT PRESENTS WITH PIV 20G LEFT FOREARM, LEFT HIP EMILEE DRESSING C/D/I WITH KNEE IMMOBILIZER AND ICEPACK, STRONG DISTAL PULSES NOTED. Addendum: 02/04/23 at 1702 by Vitor Adams RN Amended: Links added.
[2023-02-04 16:47] LABS: ISTAT CREATININE 0.8 mg/dL (0.6-1.1); ISTAT HGB 7.5 g/dl (12.0-16.0); ISTAT IONIZED CALCIUM 1.17 mmol/L (1.03-1.32); ISTAT K 3.4 mmol/L (3.5-5.1); POC BUN/CREATININE RATIO 22.5 (6.6-38.0)
[2023-02-04] MEDS ORDERED: tranexamic acid inj. 680 MG in normal saline 100ml IV soln 93.2 ML IV ONE (17:00)
--- NOTE | 2023-02-04 17:15 | NUR ---
PATIENT HAS MET ALL CRITERIA FOR TRANSFER TO ORTHO FLOOR. VSS. DRESSINGS INTACT. BED LOW, CALL LIGHT PRESENT AND 2 RAILS UP. RN PRESENT TO ACCEPT CARE OF PATIENT AND REPORT HAS BEEN CALLED. ALL QUESTIONS ANSWERED TO ACCEPTING RN. Addendum: 02/04/23 at 1726 by Vitor Adams RN Amended: Links added.
--- NOTE | 2023-02-04 17:43 | NUR ---
Patient received from OR EBL 2 liters h&H 7.5 and 22 MD aware and no current orders. Vitals stable. patient alert x4 at bedside with . water and ice at bedside. Patient report will be given to RN coming to third shift lieutenant.
[2023-02-04] MEDS: HYDROcodone/acetaminophen 10/325mg tab PO PRN (18:13)
--- NOTE | 2023-02-04 18:30 | NUR ---
Patient in room ORTHO 4017. I have received report from Eli LLANOS and had the opportunity to ask questions and assume patient care. She was moved from 4024B to 4017 due to difficult roomate.
[2023-02-04] MEDS ORDERED: vancomycin/NS 1 GM ADD-VANTAGE 250 ML IV SCH (20:00)
[2023-02-04] MEDS: ascorbic acid 500mg tablet PO SCH (20:00)
[2023-02-04] MEDS: thyroid, pork 30mg tablet PO SCH (20:00)
[2023-02-04] MEDS: gabapentin 300mg capsule PO SCH (20:23)
[2023-02-04] MEDS: sennosides 8.6mg tablet PO SCH (20:24)
[2023-02-04] MEDS: progesterone, micronized 100mg capsule PO SCH (20:24)
[2023-02-04] MEDS: ondansetron/PF 4mg/2ml inj IV PRN (20:31)
[2023-02-05] VITALS (9 sets, daily range): BP systolic 104–128; BP diastolic 54–72; PULSE 68–90; RESP 15–18; TEMP 97.6–99.6; O2SAT 95–99
[2023-02-05] MEDS: potassium cl 20mEq in 1/2 NS 1,000 ML IV SCH ×2 (00:18→15:29)
[2023-02-05] MEDS: HYDROcodone/acetaminophen 10/325mg tab PO PRN ×3 (03:33→14:41)
[2023-02-05 06:34] LABS: BASOPHILS % (AUTO) 0.6 % (0-1); EOSINOPHILS # (AUTO) 0.2 X10'3 (0-0.9); EOSINOPHILS % (AUTO) 3.2 % (0-6); LYMPHOCYTES # (AUTO) 0.7 X10'3 (1.1-4.8); LYMPHOCYTES % (AUTO) 15.3 % (21-51); MEAN CORPUSCULAR HGB CONC 34.4 g/dL (33.0-36.5); MEAN CORPUSCULAR VOLUME 92.9 FL (78-98); MEAN PLATELET VOLUME 8.9 FL (7.4-10.4); MONOCYTES # (AUTO) 0.3 X10'3 (0-0.9); MONOCYTES % (AUTO) 6.8 % (2-12); NEUTROPHILS # (AUTO) 3.5 X10'3 (1.8-7.7); NEUTROPHILS % (AUTO) 74.1 % (42-75); PLATELET COUNT 100 X10'3 (140-440); RED BLOOD COUNT 2.11 X10'6 (4.20-5.60); RED CELL DISTRIBUTION WIDTH 14.1 % (11.5-14.5); WHITE BLOOD COUNT 4.7 X10'3 (4.5-11.0)
[2023-02-05 06:45] LABS: HEMATOCRIT 19.6 % (35.0-45.0); HEMOGLOBIN 6.7 g/dl (12.0-16.0)
--- NOTE | 2023-02-05 06:51 | NUR ---
Report given to Ancelmo ARNOLD
[2023-02-05 06:53] LABS: ANION GAP 6 (8-16); CHLORIDE 102 MMOL/L (99-107); POTASSIUM 3.6 MMOL/L (3.5-5.1); SODIUM 132 MMOL/L (135-145); TOTAL CARBON DIOXIDE 23.6 MMOL/L (24-32)
[2023-02-05] MEDS: estradiol 1mg tablet PO SCH (08:00)
[2023-02-05] MEDS: ascorbic acid 500mg tablet PO SCH ×2 (08:09→20:29)
[2023-02-05] MEDS: multivitamins, therapeutics tablet PO SCH (08:09)
[2023-02-05] MEDS: aspirin 325mg tablet PO SCH (08:10)
[2023-02-05] MEDS: thyroid, pork 30mg tablet PO SCH ×2 (08:10→20:30)
[2023-02-05] MEDS: gabapentin 300mg capsule PO SCH ×3 (08:10→20:29)
[2023-02-05] MEDS: ondansetron/PF 4mg/2ml inj IV PRN (14:41)
--- NOTE | 2023-02-05 17:44 | NUR ---
I have reviewed and agree with all interventions, assessments performed and documented by Ancelmo.
--- NOTE | 2023-02-05 18:45 | NUR ---
Problems reprioritized. Patient report given, questions answered & plan of care reviewed with RADAMES Akins.
[2023-02-05] MEDS: celeCOXIB 100mg capsule PO SCH (20:29)
[2023-02-05] MEDS: sennosides 8.6mg tablet PO SCH (20:30)
[2023-02-05] MEDS: progesterone, micronized 100mg capsule PO SCH (21:00)
[2023-02-06 06:00] VITALS: BP 99/49; PULSE 72; RESP 16; TEMP 98; O2SAT 97
[2023-02-06 06:01] LABS: BASOPHILS % (AUTO) 0 % (0-1); EOSINOPHILS # (AUTO) 0.1 X10'3 (0-0.9); EOSINOPHILS % (AUTO) 2.5 % (0-6); HEMATOCRIT 22.1 % (35.0-45.0); HEMOGLOBIN 7.6 g/dl (12.0-16.0); LYMPHOCYTES # (AUTO) 0.5 X10'3 (1.1-4.8); LYMPHOCYTES % (AUTO) 9.1 % (21-51); MEAN CORPUSCULAR HEMOGLOBIN 31.2 PG (27.0-31.0); MEAN CORPUSCULAR HGB CONC 34.3 g/dL (33.0-36.5); MEAN CORPUSCULAR VOLUME 90.9 FL (78-98); MEAN PLATELET VOLUME 9.1 FL (7.4-10.4); MONOCYTES # (AUTO) 0.4 X10'3 (0-0.9); NEUTROPHILS # (AUTO) 4.9 X10'3 (1.8-7.7); NEUTROPHILS % (AUTO) 82.4 % (42-75); PLATELET COUNT 105 X10'3 (140-440); RED BLOOD COUNT 2.43 X10'6 (4.20-5.60); RED CELL DISTRIBUTION WIDTH 13.4 % (11.5-14.5); WHITE BLOOD COUNT 5.9 X10'3 (4.5-11.0)
--- NOTE | 2023-02-06 06:33 | NUR ---
Problems reprioritized. Patient report given, questions answered & plan of care reviewed with Ancelmo LLANOS.
[2023-02-06 07:00] VITALS: RESP 16; O2SAT 97
[2023-02-06] MEDS: gabapentin 300mg capsule PO SCH ×2 (07:09→13:18)
[2023-02-06] MEDS: celeCOXIB 100mg capsule PO SCH (07:09)
[2023-02-06] MEDS: HYDROcodone/acetaminophen 10/325mg tab PO PRN ×2 (07:09→14:25)
[2023-02-06] MEDS: estradiol 1mg tablet PO SCH (07:09)
[2023-02-06] MEDS: thyroid, pork 30mg tablet PO SCH (07:09)
[2023-02-06] MEDS: ascorbic acid 500mg tablet PO SCH (07:09)
[2023-02-06] MEDS: multivitamins, therapeutics tablet PO SCH (07:09)
[2023-02-06] MEDS: aspirin 325mg tablet PO SCH (07:11)
[2023-02-06 10:00] VITALS: BP 111/62; PULSE 64; RESP 18; TEMP 98; O2SAT 100
[2023-02-06] MEDS: scopolamine 1MG/72H patch 1 PATCH PATCH.TD.3 TD SCH (11:25)
[2023-02-06 15:25] VITALS: RESP 16
--- NOTE | 2023-02-06 15:55 | NUR ---
pt stable for d/c. patient signed all d/c paperwork, IV discontinued prior to d/c. patient left with all belongings. patient assisted down to lobby via wheelchair. patient got into private vehicle with spouse and left to go home. d/c @ 2097.
== END 2023-02-06 15:50 | disposition home or self-care (01) | DRG 468 ==
LOC: PAS IN 09:54 → ORTHO 4S 17:15
PROVIDERS: ADMIT Orthopaedic Surgery; ATTEND Orthopaedic Surgery
PROC: 0SPB0JZ Removal of Synthetic Substitute from Left Hip Joint, Open Approach (ICD-10-PCS; 2023-02-04)
PROC: 0SRB06Z Replacement of Left Hip Joint with Oxidized Zirconium on Polyethylene Synthetic Substitute, Open Approach (ICD-10-PCS; principal; 2023-02-04 11:57)
PROC: 30233N1 Transfusion of Nonautologous Red Blood Cells into Peripheral Vein, Percutaneous Approach (ICD-10-PCS; 2023-02-05)
DX: T84.021A Dislocation of internal left hip prosthesis, initial encounter (principal); M25.352 Other instability, left hip; Z96.642 Presence of left artificial hip joint; X58.XXXA Exposure to other specified factors, initial encounter; Y83.8 Other surgical procedures as the cause of abnormal reaction of the patient, or of later complication, without mention of misadventure at the time of the procedure; Y92.89 Other specified places as the place of occurrence of the external cause; Z88.8 Allergy status to other drugs, medicaments and biological substances
CPT/HCPCS: Z7506; Z7508; 36415; 36430; 72170; 80047; 80051; 80053; 82948; 84443; 85025; 86885; 86900; 86901; 86920; 87081; 93005; 97110; 97116; 97161; 97530; A7000; A9272; C1713; C1776; G0378; J0171; J0690; J0735; J1170; J1885; J2250; J2270; J2310; J2405; J2704; J2765; J2795; J3010; J3370; J3480; J3490; J7040; J7060; J7120; P9016; P9045; Q0163

== ENCOUNTER 2023-07-12 20:07 | Emergency (ER) | payer BC ==
[~2023-07-12] VITALS: Ht 170.2 cm; Wt 68.2 kg
[~2023-07-12 20:07] MED LIST changes: -HYDROcodone/acetaminophen 10/325mg tab PO PRN; -HYDROmorphone 1 mg/ml syringe IV PRN; -HYDROmorphone inj. 0.5 MG/0.5 ML DISP.SYRIN IV PRN; -acetaminophen 325mg tablet PO PRN; -ascorbic acid 500mg tablet PO SCH; -bisacodyl 10mg suppository rectal RC PRN; -cefazolin 2gm/D5W 100mL 100 ML IV ONE; -diphenhydrAMINE 25mg capsule PO PRN; -famotidine 20mg tablet PO ONE; -magnesium hydroxide 30ml (MOM) UD suspension PO PRN; -naloxone 0.4 mg/ml inj IV PRN; -ringers solution, lacted 1,000 ML IV SCH; -vancomycin/NS 1 GM in NS 250 ML IV ONE
[2023-07-12 20:14] VITALS: TEMP 98.7
[2023-07-12] MEDS ORDERED: ONDA4TAB12 PO (21:23)
[2023-07-12] MEDS ORDERED: OXYC-658 PO (21:23)
[2023-07-12] MEDS: propofol 10mg/ml 20ml vial IV ONE (21:23)
[2023-07-12 22:24] VITALS: BP 143/78; PULSE 75; RESP 16; O2SAT 100
== END 2023-07-12 22:31 | disposition home or self-care (01) ==
LOC: ER 20:08
DX: S73.005A Unspecified dislocation of left hip, initial encounter (principal); Z91.041 Radiographic dye allergy status; Z79.899 Other long term (current) drug therapy; Z79.1 Long term (current) use of non-steroidal anti-inflammatories (NSAID); X58.XXXA Exposure to other specified factors, initial encounter; Y93.89 Activity, other specified; Y92.89 Other specified places as the place of occurrence of the external cause; Y99.8 Other external cause status
CPT/HCPCS: 27250; 73502; 99152; 99285; A4620

== ENCOUNTER 2023-09-03 21:43 | Emergency (ER) | payer BC ==
[~2023-09-03] VITALS: Ht 170.2 cm; Wt 65.9 kg
[~2023-09-03 21:43] MED LIST changes: +ONDA4TAB12 PO
[2023-09-03 21:59] VITALS: TEMP 97.5
[2023-09-03] MEDS: propofol 10mg/ml 20ml vial IV ONE (23:54)
[2023-09-04 00:23] VITALS: BP 144/78; PULSE 75; RESP 16; O2SAT 98
== END 2023-09-04 00:29 | disposition home or self-care (01) ==
LOC: ER 21:43
DX: M24.452 Recurrent dislocation, left hip (principal); Z91.041 Radiographic dye allergy status; Z79.899 Other long term (current) drug therapy; Z79.1 Long term (current) use of non-steroidal anti-inflammatories (NSAID)
CPT/HCPCS: 27265; 73501; 73502; 99152; 99285; J7030; A4615

== ENCOUNTER 2023-09-15 13:07 | Emergency (ER) | payer BC ==
[~2023-09-15] VITALS: Ht 170.2 cm; Wt 66.8 kg
[~2023-09-15 13:07] MED LIST changes: +ONDA-243 PO; -ONDA4TAB12 PO
[2023-09-15] MEDS: ketorolac tromethamine 15mg/ml inj. IM ONE (14:07)
[2023-09-15] MEDS: ketorolac tromethamine 15mg/ml inj. IV ONE (14:57)
[2023-09-15] MEDS: diazepam inj 5 MG/ML inj. IV ONE (15:04)
[2023-09-15] MEDS: ondansetron/PF 4mg/2ml inj IV ONE (15:48)
[2023-09-15] MEDS: propofol 10mg/ml 20ml vial IV ONE ×2 (15:48)
[2023-09-15 16:32] VITALS: BP 160/57; PULSE 57; RESP 14; TEMP 98.3; O2SAT 100
== END 2023-09-15 16:35 | disposition home or self-care (01) ==
LOC: ER 13:07
DX: S73.005A Unspecified dislocation of left hip, initial encounter (principal); Z91.041 Radiographic dye allergy status; Z79.899 Other long term (current) drug therapy; X58.XXXA Exposure to other specified factors, initial encounter; Y93.89 Activity, other specified; Y92.89 Other specified places as the place of occurrence of the external cause; Y99.8 Other external cause status
CPT/HCPCS: 27265; 72170; 73502; 96374; 96375; 99285; J1885; J2405; J2704; J3360; A4620

== ENCOUNTER 2023-09-26 18:48 | Emergency (ER) | payer BC ==
[~2023-09-26] VITALS: Ht 170.2 cm; Wt 65.9 kg
[~2023-09-26 18:48] MED LIST changes: -ONDA-243 PO; +ONDA4TAB12 PO
[2023-09-26 18:49] VITALS: TEMP 97.9
[2023-09-26] MEDS: morphine 2 MG/ML inj. syringe IV PRN (19:43)
[2023-09-26] MEDS: normal saline 1000ml 1,000 ML IV ONE (19:46)
[2023-09-26 19:55] LABS: BASOPHILS % (AUTO) 0.7 % (0-1); EOSINOPHILS # (AUTO) 0.2 X10'3 (0-0.9); EOSINOPHILS % (AUTO) 3.3 % (0-6); HEMATOCRIT 37.4 % (35.0-45.0); HEMOGLOBIN 12.7 g/dl (12.0-16.0); LYMPHOCYTES # (AUTO) 1.5 X10'3 (1.1-4.8); LYMPHOCYTES % (AUTO) 21.1 % (21-51); MEAN CORPUSCULAR HEMOGLOBIN 30.1 PG (27.0-31.0); MEAN CORPUSCULAR HGB CONC 33.8 g/dL (33.0-36.5); MEAN CORPUSCULAR VOLUME 88.9 FL (78-98); MEAN PLATELET VOLUME 8.7 FL (7.4-10.4); MONOCYTES # (AUTO) 0.4 X10'3 (0-0.9); MONOCYTES % (AUTO) 6.3 % (2-12); NEUTROPHILS # (AUTO) 4.8 X10'3 (1.8-7.7); NEUTROPHILS % (AUTO) 68.6 % (42-75); PLATELET COUNT 204 X10'3 (140-440); RED BLOOD COUNT 4.21 X10'6 (4.20-5.60); RED CELL DISTRIBUTION WIDTH 14.1 % (11.5-14.5)
[2023-09-26 19:58] LABS: ALBUMIN 3.6 G/DL (3.4-5.0); ANION GAP 11 (8-16); BLOOD UREA NITROGEN 16 MG/DL (7-18); BUN/CREATININE RATIO 19.3 (10.0-20.0); CHLORIDE 102 MMOL/L (99-107); CREATININE 0.83 MG/DL (0.40-0.90); GLUCOSE 83 MG/DL (70-104); POTASSIUM 3.4 MMOL/L (3.5-5.1); SODIUM 136 MMOL/L (135-145); TOTAL CARBON DIOXIDE 22.7 MMOL/L (24-32); eCRCL 67 ML/MIN; eGFR 69 ML/MIN
[2023-09-26] MEDS: propofol 10mg/ml 20ml vial IV ONE (20:04)
[2023-09-26 20:51] VITALS: BP 126/62; PULSE 68; RESP 14; O2SAT 98
== END 2023-09-26 20:55 | disposition home or self-care (01) ==
LOC: ER 18:48
DX: S73.005A Unspecified dislocation of left hip, initial encounter (principal); Z98.890 Other specified postprocedural states; Z88.8 Allergy status to other drugs, medicaments and biological substances; Z79.1 Long term (current) use of non-steroidal anti-inflammatories (NSAID); Z79.899 Other long term (current) drug therapy; X58.XXXA Exposure to other specified factors, initial encounter; Y93.89 Activity, other specified; Y92.89 Other specified places as the place of occurrence of the external cause; Y99.8 Other external cause status
CPT/HCPCS: 27250; 36415; 73502; 80048; 83735; 85025; 99285; J2270; J7030; 94760; A4620

== ENCOUNTER 2023-10-10 19:58 | Emergency (ER) | payer BC ==
[~2023-10-10] VITALS: Ht 170.2 cm; Wt 65.9 kg
[~2023-10-10 19:58] MED LIST changes: +ONDA-243 PO; -ONDA4TAB12 PO
[2023-10-10 19:59] VITALS: TEMP 98
[2023-10-10] MEDS: fentaNYL/PF 50MCG/1 ML 2ML syringe IV ONE (21:11)
[2023-10-10] MEDS: propofol 10mg/ml 20ml vial IV ONE (21:24)
[2023-10-10 21:57] VITALS: BP 141/77; PULSE 66; RESP 12; O2SAT 98
== END 2023-10-10 22:04 | disposition home or self-care (01) ==
LOC: ER 19:58
DX: S73.005A Unspecified dislocation of left hip, initial encounter (principal); M25.552 Pain in left hip; Z91.041 Radiographic dye allergy status; Z79.1 Long term (current) use of non-steroidal anti-inflammatories (NSAID); Z79.899 Other long term (current) drug therapy; X58.XXXA Exposure to other specified factors, initial encounter; Y93.89 Activity, other specified; Y92.89 Other specified places as the place of occurrence of the external cause; Y99.8 Other external cause status
CPT/HCPCS: 27265; 73502; 96374; 99291; J3010; J7030; 27250; 94760; A4615; A4620

== ENCOUNTER 2023-10-20 05:13 | Emergency (ER) | payer BC ==
[~2023-10-20] VITALS: Ht 170.2 cm; Wt 65.9 kg
[2023-10-20 05:19] VITALS: TEMP 98.2
[2023-10-20 06:22] VITALS: BP 132/75; PULSE 67; RESP 16; O2SAT 99
[2023-10-20] MEDS: propofol 10mg/ml 20ml vial IV ONE (06:25)
[2023-10-20] MEDS: propofol 10mg/ml 20ml vial IV STA (06:25)
== END 2023-10-20 06:49 | disposition home or self-care (01) ==
LOC: ER 05:13
DX: T84.021A Dislocation of internal left hip prosthesis, initial encounter (principal); Z88.8 Allergy status to other drugs, medicaments and biological substances; Z79.899 Other long term (current) drug therapy; Z79.1 Long term (current) use of non-steroidal anti-inflammatories (NSAID); Z98.890 Other specified postprocedural states
CPT/HCPCS: 27250; 73502; 99285; J2704; J7030; 94760

== ENCOUNTER 2024-03-22 18:12 | Inpatient (IN) | payer BC ==
[~2024-03-22] VITALS: Ht 170.2 cm; Wt 69.0 kg
[2024-03-22] MEDS: etomidate 2mg/ml inj. IV ONE (20:32)
[2024-03-22] MEDS ORDERED: HYDROmorphone inj. 0.5 MG/0.5 ML DISP.SYRIN IV PRN (20:40)
[2024-03-22] MEDS ORDERED: naloxone 0.4 mg/ml inj IV PRN (20:40)
[2024-03-22] MEDS ORDERED: magnesium hydroxide 30ml (MOM) UD suspension PO PRN (20:40)
[2024-03-22] MEDS ORDERED: diphenhydrAMINE 25mg capsule PO PRN ×2 (20:40)
[2024-03-22] MEDS ORDERED: bisacodyl 10mg suppository rectal RC PRN (20:40)
[2024-03-22] MEDS ORDERED: HYDROmorphone 1 mg/ml syringe IV PRN (20:40)
[2024-03-22] MEDS ORDERED: ondansetron/PF 4mg/2ml inj IV PRN (20:40)
[2024-03-22] MEDS ORDERED: acetaminophen 325mg tablet PO PRN (20:40)
[2024-03-22] MEDS ORDERED: oxyCODONE IR 5mg (immed. release) tablet PO PRN (20:40)
[2024-03-22] MEDS: sennosides 8.6mg tablet PO SCH (21:43)
[2024-03-22] MEDS: oxyCODONE IR 5mg (immed. release) tablet PO PRN (21:46)
[2024-03-22] MEDS: potassium cl 20mEq in 1/2 NS 1,000 ML IV SCH (23:01)
[2024-03-23] MEDS: acetaminophen 325mg tablet PO SCH (02:00)
[2024-03-23 03:07] LABS: BASOPHILS % (AUTO) 0.5 % (0-1); EOSINOPHILS # (AUTO) 0.3 X10'3 (0-0.9); EOSINOPHILS % (AUTO) 4.6 % (0-6); HEMOGLOBIN 11.1 g/dl (12.0-16.0); LYMPHOCYTES # (AUTO) 1.6 X10'3 (1.1-4.8); LYMPHOCYTES % (AUTO) 25.1 % (21-51); MEAN CORPUSCULAR HEMOGLOBIN 27.9 PG (27.0-31.0); MEAN CORPUSCULAR HGB CONC 33.6 g/dL (33.0-36.5); MEAN PLATELET VOLUME 8.4 FL (7.4-10.4); MONOCYTES # (AUTO) 0.5 X10'3 (0-0.9); MONOCYTES % (AUTO) 8.1 % (2-12); NEUTROPHILS # (AUTO) 3.9 X10'3 (1.8-7.7); NEUTROPHILS % (AUTO) 61.7 % (42-75); PLATELET COUNT 163 X10'3 (140-440); RED BLOOD COUNT 3.98 X10'6 (4.20-5.60); RED CELL DISTRIBUTION WIDTH 21.7 % (11.5-14.5); WHITE BLOOD COUNT 6.4 X10'3 (4.5-11.0)
[2024-03-23 03:15] LABS: ANION GAP 8 (8-16); CHLORIDE 108 MMOL/L (99-107); POTASSIUM 3.8 MMOL/L (3.5-5.1); SODIUM 141 MMOL/L (135-145); TOTAL CARBON DIOXIDE 25.2 MMOL/L (24-32)
[2024-03-23 03:53] LABS: ANISOCYTOSIS 2+; ELLIPTOCYTES 1+
[2024-03-23 07:55] VITALS: BP 151/52; PULSE 75; RESP 16; TEMP 98.4; O2SAT 99
[2024-03-23] MEDS ORDERED: hydrALAZINE 20mg/ml inj. IV PRN (08:00)
[2024-03-23] MEDS ORDERED: fentaNYL/PF 50MCG/1 ML 2ML syringe IV PRN ×2 (08:00)
[2024-03-23] MEDS ORDERED: ondansetron/PF 4mg/2ml inj IV PRN (08:00)
[2024-03-23] MEDS ORDERED: labetalol 20mg/4ml (5mg/ml) syringe IV PRN (08:00)
[2024-03-23] MEDS ORDERED: morphine 2 MG/ML inj. syringe IV PRN (08:00)
[2024-03-23] MEDS ORDERED: morphine 4 MG/ML inj SYRINge IV PRN (08:00)
[2024-03-23] MEDS ORDERED: sevoflurane 250ml liquid IH ONE (08:11)
[2024-03-23] MEDS ORDERED: midazolam 1 mg/ML 2ml injection ONE (08:11)
[2024-03-23] MEDS ORDERED: ondansetron/PF 4mg/2ml inj ONE (08:11)
[2024-03-23] MEDS ORDERED: propofol inj 20 ML IV ONE (08:11)
[2024-03-23] MEDS ORDERED: acetaminophen 1,000mg/100ml IV 100 ML IV ONE (08:12)
[2024-03-23] MEDS ORDERED: LIDOcaine 2% (20mg/ml) 5ml vial ONE (08:14)
[2024-03-23 08:58] VITALS: BP 117/67; PULSE 70; RESP 18; O2SAT 100
[2024-03-23] MEDS ORDERED: HYDROcodone/acetaminophen 10/325mg tab PO PRN (09:05)
[2024-03-23 09:10] VITALS: BP 115/73; PULSE 69; RESP 10; O2SAT 100
[2024-03-23] MEDS: ringers solution, lacted 1,000 ML IV SCH (09:18)
[2024-03-23 09:20] VITALS: BP 139/80; PULSE 60; RESP 8; O2SAT 100
[2024-03-23 09:30] VITALS: BP 142/83; PULSE 63; RESP 11; O2SAT 99
[2024-03-23 09:40] VITALS: BP 155/82; PULSE 54; RESP 9; O2SAT 100
[2024-03-24] MEDS ORDERED: acetaminophen 325mg tablet PO PRN (20:40)
== END 2024-03-23 10:08 | disposition home or self-care (01) | DRG 561 ==
LOC: ER 18:13 → ED HOLD 20:44
PROVIDERS: ADMIT Orthopaedic Surgery; ATTEND Orthopaedic Surgery
PROC: 0YJ Anatomical Regions, Lower Extremities, Inspection (ICD-10-PCS; 2024-03-22)
PROC: 0QS5XZZ Reposition Left Acetabulum, External Approach (ICD-10-PCS; principal; 2024-03-23 08:11)
DX: T84.021A Dislocation of internal left hip prosthesis, initial encounter (principal); X58.XXXA Exposure to other specified factors, initial encounter; Y83.8 Other surgical procedures as the cause of abnormal reaction of the patient, or of later complication, without mention of misadventure at the time of the procedure; Y92.89 Other specified places as the place of occurrence of the external cause; Z82.49 Family history of ischemic heart disease and other diseases of the circulatory system; Z88.1 Allergy status to other antibiotic agents; Z79.899 Other long term (current) drug therapy
CPT/HCPCS: 96374; 99285; Z7506; 36415; 73501; 73502; 76000; 80051; 85008; 85025; 94760; A4618; A4620; G0378; J0131; J1100; J2003; J2250; J2405; J2704; J2710; J3480; J3490; J7120